=== PATIENT | female | born 1945 | race Caucasian/White ===

== ENCOUNTER 2017-01-19 02:07 | Emergency (ER) | payer OTHER ==
[2017-01-19 02:15] VITALS: TEMP 98.2
--- NOTE | 2017-01-19 02:51 | EDPHY ---
H & P Stated Complaint: RT KNEE AND ANKLE PAIN X 1 YEAR UNABLE TO SLEEP Time Seen by Provider: 01/19/17 02:36 HPI/ROS: Chief Complaint: Right knee pain HPI: 71-year-old woman it has been having right knee pain since March of this year. Patient states that for the last couple weeks it has been worse. She has pain in her knee when she walks or bends it. Does not have any pain at rest. Does not get discolored. Does not feel cool to the touch. Does not have any calf pain. Is always in her right knee. She was seen by her primary care physician and told it is probably arthritis. She has not been taking any medicines for this. No chest pain or shortness of breath. ROS: 10 point Review of Systems is negative except as noted in the HPI. PMH: Colon cancer, brain tumor resection, diabetes Social History: No smoking, no alcohol, no recreational drug use Family History: non-contributory Physical Exam: Gen: Awake, Alert, No Distress HEENT: Nose: no rhinorrhea Eyes: PERRLA, EOMI Mouth: Moist mucosa Neck: Supple, no JVD Ext: no edema, no calf tenderness, 2+ dorsalis pedis pulses, capillary refills less than 2 seconds. Sensations intact in all dermatomes. She has pain to the medial knee with loading of the medial meniscus and also with loading of the MCL. She is able to flex past 90. No anterior drawer sign. Skin: no rash Neuro: CN II-XII intact, Sensation grossly intact, Strength 5/5 in bilateral upper and lower extremities - Personal History Current Tetanus/Diphtheria Vaccine: Yes Current Tetanus Diphtheria and Acellular Pertussis (TDAP): Yes - Medical/Surgical History Hx Diabetes: Yes Hx Splenectomy or Spleen Trauma: No Other PMH: Colon CA, Brain tumor resection, chronic UTI, diabetes, sleep apnea - Social History Smoking Status: Former smoker Constitutional: Initial Vital Signs Temperature (C) 36.8 C 01/19/17 02:10 Heart Rate 77 01/19/17 02:10 Respiratory Rate 18 01/19/17 02:10 Blood Pressure 128/95 H 01/19/17 02:10 O2 Sat (%) 94 01/19/17 02:10 O2 Delivery Mode Room Air Allergies/Adverse Reactions: ceftriaxone sodium [From Rocephin] Allergy (Severe, Verified 02/25/16 11:33) Other-Enter Comments Home Medications: Medication Instructions Recorded Acetaminophen [Tylenol ES 500 mg 07/16/15 (*)] Ascorbic Acid [Vitamin C 250 mg 07/16/15 (*)] Atorvastatin Calcium [Lipitor 20 07/16/15 mg (*)] Canagliflozin [Invokana] 07/16/15 Cholecalciferol (Vitamin D3) 07/16/15 [Vitamin D3] Levothyroxine [Synthroid 25 mcg 07/16/15 (*)] Metoprolol Succinate Xr [Toprol Xl 07/16/15 25 mg (*)] [place]-3 Fatty Acids [Fish Oil 1000 07/16/15 mg (*)] Pioglitazone HCl [Actos] 07/16/15 metFORMIN HCL [Metformin HCl ER] 07/16/15 Medical Decision Making - Diagnostics Imaging Results: No acute abnormality per my interpretation. Imaging: I viewed and interpreted images myself ED Course/Re-evaluation: 71-year-old woman with reproducible right knee pain with loading of the medial meniscus and of the medial collateral ligament. She has normal perfusion. There are no findings to suggest DVT or limb ischemia. Will obtain x-ray to evaluate for acute bony abnormality. No acute abnormality on the x-ray. No symptoms to suggest ischemia, blood clot. Will discharge with follow up with Orthopedics as an outpatient. Departure - Departure Disposition: Home, Routine, Self-Care Clinical Impression: Knee pain Condition: Good Instructions: Knee Pain (ED), Hydrocodone/Acetaminophen (By mouth) Additional Instructions: You may take the hydrocodone with acetaminophen, 1-2 tabs every 4-6 hours as needed for pain. Follow up with Orthopedics, Dr. cardoso, in 2-3 days. Follow up with Dr. Olmos in 3-4 days. Return to the emergency department for increasing pain, discoloration or cold sensation of your leg or foot, increasing calf pain or swelling, shortness of breath, or any other concerns. Referrals: Mark Olmos MD [Primary Care Provider] - As per Instructions
[2017-01-19] MEDS ORDERED: HYDROCOD/APAP 5/325 PREPACK#6 BTL TAKEHOME ONE (03:25)
[2017-01-19 03:40] VITALS: BP 129/79; PULSE 62; RESP 16; O2SAT 98
== END 2017-01-19 03:40 | disposition home or self-care (01) ==
DX: M25.561 Pain in right knee (principal); E11.9 Type 2 diabetes mellitus without complications; Z79.84 Long term (current) use of oral hypoglycemic drugs; Z85.038 Personal history of other malignant neoplasm of large intestine; Z87.891 Personal history of nicotine dependence